=== PATIENT | female | born 1975 | race Caucasian/White ===

== ENCOUNTER 2023-05-12 00:11 | Emergency (ER) | payer OTHER, SELFPAY ==
[2023-05-12 00:12] VITALS: BP 175/93; PULSE 101; RESP 16; TEMP 36.1; O2SAT 98; BMI 42.7
--- NOTE | 2023-05-12 00:29 | RAD_ITS ---
INDICATION: chest pain EXAMINATION/TECHNIQUE: X-RAY - XR Chest 1 View COMPARISON: None. Findings: Single frontal view of the chest. LUNG PARENCHYMA/PLEURA: Moderate to large left pleural effusion with adjacent atelectasis versus other airspace disease. No pneumothorax. HEART/GREAT VESSELS: Cardiomediastinal silhouette is partially obscured. BONES: Osseous structures are unremarkable for age. RAD/Chest 1 View (Portable) IMPRESSION: Moderate to large left pleural effusion with adjacent atelectasis versus other airspace disease, to include pneumonia. Recommend follow-up to resolution as neoplastic process is not excluded. Electronically Signed: Jeremías Segura MD at 1:37 EDT ,
--- NOTE | 2023-05-12 00:29 | EKG12_ITS ---
Test Reason : CP Blood Pressure : / mmHG Vent. Rate : 094 BPM Atrial Rate : 094 BPM P-R Int : 172 ms QRS Dur : 096 ms QT Int : 372 ms P-R-T Axes : 046 029 047 degrees QTc Int : 465 ms Normal sinus rhythm Normal ECG Confirmed by JOSE R CHANDLER, VAN ([id number]), city editor FRANCISCO VELIZ ([id number]) on 05/17/2023 11:18:14 AM Referred By: PL Confirmed By:LAUREN ODELL MD
--- NOTE | 2023-05-12 00:31 | ED.VIS.CHEST ---
HPI History of Present Illness Chief Complaint: Chest Pain Informant: patient Narrative Narrative: Left-sided chest pain. Patient states she woke up at about 5 AM this morning and she had pain in the left axillary area. It is moved slightly around to the left lateral breast area. It is sharp. It is worse if she sits up or lays back. It is worse if she uses her left arm to pull on something. But it is also worse if she takes a deep breath. She is not actually short of breath. She has had no nausea vomiting or diaphoresis. 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 She states it is not heavy but her states she does a lot of heavy lifting. It is painful to do these motions. But she does not remember specifically hurting herself. She states she had something like this in her 20s and was diagnosed as pleurisy. But there is no known cause for that pleurisy. She denies ever being diagnosed with a DVT or PE. There is been no travel surgery immobilization family history of DVT or PE. Patient is a smoker and was counseled to quit. She has had a sister that of COPD. She had another family member of COPD and lung cancer. Patient also thinks her father may have had his first heart attack in his late 40s. Patient is hypertensive. She was diagnosed 3 months ago. This was at a routine physical. She was started on an unknown medicine that caused her to have abnormal menstrual cycle so she stopped the medicine. She has not yet followed up. [facility] Medical History HTN (hypertension) Home Medications ferrous sulfate 325 mg (65 mg iron) tablet (Feosol) 325 mg PO BID #60 tabs 05/12/23 [Rx Last Taken Unknown] levofloxacin 750 mg tablet 750 mg PO DAILY #5 tabs 05/12/23 [Rx Last Taken Unknown] naproxen 500 mg tablet 500 mg PO BID #14 tabs 05/12/23 [Rx Last Taken Unknown] Allergy/AdvReac Type Severity Reaction Status Date / Time No Known Allergies Allergy Verified 05/12/23 00:12 Surgical History History of tonsillectomy Social History Smoking Status: Current every day smoker tobacco type: cigarettes ROS ROS ED ROS Narrative A complete review of systems was performed and is negative except as documented in the history of present illness. Some specific details below. Constitutional: No recent fevers or chills. Malaise. When she went to bed she felt fine. Other than the pain she feels fine now. She does not feel systemically ill. EYE: No discharge, visual complaints, or pain. ENT: No difficulty swallowing. No swelling. No pain. No reflux symptoms. CV: See history of present illness. Not been syncopal or near syncopal. Respiratory: Does hurt to breathe but she is not short of breath. GI: No abdominal pain. No nausea vomiting diarrhea. No blood in stool. : No frequency dysuria or hematuria. Did have a menstrual cycle for over a month after she started her unknown blood pressure medicine. But she has now been off this for several weeks and is no longer bleeding. Musculoskeletal: No recent trauma. No pains. No swelling. Never had pain in the back. Her pain is not tearing or ripping. Skin: No rash. Nondiaphoretic now or at any time. Neuro: No weakness or numbness. Endocrine: No polyuria or polydipsia. EXAM Physical Exam Narrative Exam Narrative: CONSTITUTIONAL: Patient is nontoxic in appearance. The patient looks comfortable. She does sit somewhat hunched over because she states that straightening up hurts more. HEENT: No notable trauma. Mucous membranes moist. No sinus tenderness. No indication of pain with swallowing. EYES: No conjunctival injection. No proptosis. NECK:No JVD. No stridor. CARDIOVASCULAR: Regular rate. Rate on the monitor is 90?92 with no ectopy. It appears to be a normal sinus rhythm. Regular rhythm to auscultation also. No notable murmur. No JVD. RESPIRATORY: No respiratory distress. Breathing is unlabored. No wheezes. No rhonchi. No rales. She does have a little bit of discomfort with a deep breath in this area. But she also has chest wall tenderness in this area. But there are no vesicles noted. GASTROINTESTINAL: Not distended. Bowel sounds are normal. No tenderness. No guarding. No rebound. No palpable mass. No bruit is heard. GENITOURINARY: No tenderness over the bladder. No CVA tenderness. MUSCULOSKELETAL: Atraumatic. No peripheral edema. No cord. No tenderness along the deep venous system. No asymmetry. No distended veins. NEUROLOGICAL: Patient is alert and appropriate. No focal deficit noted. SKIN: No noted rashes. No diaphoresis. PSYCHIATRIC: Patient is calm. Mood is appropriate. Const Vital Signs: 05/12/23 00:12 05/12/23 00:33 Temperature 97 F L Temperature Source Temporal Pulse Rate 101 H Respiratory Rate 16 Blood Pressure 175/93 H Blood Pressure Mean 120 Pulse Ox 98 Oxygen Delivery Method Room Air Heart Score History: Slightly/Non-Suspicious ECG: Normal Age: >45 - <65 years Risk Factors: 1 or 2 Risk Factors Score: 2 MDM MDM MDM Narrative Medical decision making narrative: My independent interpretation of the patient's single view AP chest x-ray shows a moderate size left effusion. I could not hear this on exam but the patient did have some pleuritic pain and would have cessation of inspiration with a deep breath. CBC shows mild elevation of white count and a low hemoglobin 8.3. Platelets are also slightly elevated. Patient may be anemic because she had bleeding for a month or so continually when she started a unknown blood pressure medicine. She is now off that and no longer bleeding. But with her x-ray finding it also brings in the question possibility of bleeding there. Her story does not match that of dissection. She is never had back pain. Its all far lateral left sided. She does have tenderness in the chest wall. She also has pleuritic pain. I will do a CTA. 1 also must be concerned about cancer. It sounds like her father had lung cancer. She is lost 2 sisters from lung disease that sound like COPD and possible cancer. I am concerned with her x-ray finding. Because she had the heavy bleeding recently we will continue the scan through the abdomen pelvis. Although it certainly possible that a blood pressure medicine contributed to this bleeding this may not be the the reason that she had heavy bleeding for a while. Patient's electrolytes showed no marked abnormalities. Minimal elevation of glucose at 130 that can be rechecked. Patient's D-dimer is positive at 1.45. CTA was ordered. Troponin is negative at 43. She has had symptoms for approximately 20 hours. My independent her potation of her CTA of the chest does not show any dissection or pulmonary embolus. There is a large effusion on the left and questionable infiltrate. She appears to have a slightly enlarged uterus final reading is similar. They do mention a hemorrhagic ovarian cyst also. We walked the patient in the department. She walked actually a fair distance down and back. She looked comfortable. She was not short of breath. Her lowest saturation was 94%. I think we can get her home. I will get her started on antibiotics. But I explained that a very important part of treatment is follow-up. We need to make sure that her CT scan and/or chest x-ray clears. She also needs to follow-up for the anemia. This is likely from the heavy vaginal bleeding as her MCH and indices are down showing chronic changes. I will get her started on iron also. She is not currently bleeding. Lab Data Attestation: I reviewed the patient's lab results. Labs: Laboratory Results - last 24 hr 05/12/23 00:33 WBC 14.8 H RBC 4.34 Hgb 8.3 L Hct 29.3 L MCV 67.5 L MCH 19.1 L MCHC 28.3 L RDW Std Deviation 46.1 H RDW Coeff of Moe 19.4 H Plt Count 494 H MPV 8.6 Immature Gran % (Auto) 0.700 Neut % (Auto) 82.2 H Lymph % (Auto) 6.3 L [place] % (Auto) 10.0 Eos % (Auto) 0.5 Baso % (Auto) 0.3 Absolute Neuts (auto) 12.2 H Absolute Lymphs (auto) 0.93 Nucleated RBC % 0 D-Dimer Quant (PE/DVT) 1.45 H* Sodium 135 L Potassium 3.6 Chloride 105 Carbon Dioxide 23.0 Anion Gap 7 BUN 10 Creatinine 0.66 Estim Creat Clear Calc 78.66 Est GFR (MDRD) Af Amer 122 Est GFR (MDRD) Non-Af 101 BUN/Creatinine Ratio 15.1 Glucose 130 H Calcium 9.1 Troponin I High Sens 43 Radiography Diagnostic Testing: Clinical Impression(s) from Imaging Studies Chest X-Ray 05/12/23 00:29 IMPRESSION: Moderate to large left pleural effusion with adjacent atelectasis versus other airspace disease, to include pneumonia. Recommend follow-up to resolution as neoplastic process is not excluded. Electronically Signed: Jeremías Segura MD at 1:37 EDT , Chest/Abdomen/Pelvis CTA 05/12/23 00:44 IMPRESSION: Moderate left pleural effusion with adjacent atelectasis. Likely associated borderline mediastinal adenopathy. Recommend follow-up to resolution as neoplastic process is not excluded. 3 cm right likely hemorrhagic ovarian cyst. Likely splenic hemangioma as above. Recommend comparison with previous imaging to document long-term stability versus follow-up evaluation as neoplastic process is not excluded. Electronically Signed: Jeremías Segura MD at 1:59 EDT , EKG Initial EKG: Comments: Independent interpretation the patient's EKG shows sinus rhythm with a rate at 94. No ectopy. No acute ST elevation or depression. MT interval, QRS duration and QTc are overall normal. I do not have a prior to compare to on our system. Discharge Plan Triage Chief Complaint: Chest Pain ED Provider: Melvin Márquez Dx/Rx/DC Orders Clinical Impression: Pneumonia, Anemia, Pleural effusion, left Instructions: Anemia, ED Pneumonia (Adult) Prescriptions: New ferrous sulfate [Feosol] 325 mg (65 mg iron) tablet 325 mg PO BID Qty: 60 0RF Rx Instructions: Heart once a day for a week then go up to twice a day levofloxacin 750 mg tablet 750 mg PO DAILY Qty: 5 0RF naproxen 500 mg tablet 500 mg PO BID Qty: 14 0RF Primary Care Provider: Care Physician,No Primary Referrals: Abdulkadir De La Fuente MD [Non-Staff] - Lawanda Marcano [Non-Staff] - 1 Week Disposition Disposition: Home, Self Care
[2023-05-12] MEDS: 0.9% Normal Saline (1000mL) 1,000 ML 1000 ML IV (00:35)
[2023-05-12 00:37] LABS: Absolute Lymphocyte Count 0.93 X10^3/uL (0.83-4.51); Absolute Neutrophil Count 12.2 X10^3/uL (2.0-7.7); Basophil# 0.05 X10^3/uL; Basophil% 0.3 % (0-1); Eosinophil# 0.08 X10^3/uL; Eosinophils% 0.5 % (0-5); Hematocrit 29.3 % (37-47); Hemoglobin 8.3 g/dL (12.0-15.0); Lymphocyte # 0.93 X10^3/ul (0.83-4.51); Lymphocyte % 6.3 % (19-41); Mean Corp Hgb Conc 28.3 g/dL (32-36); Mean Corpuscular Hgb 19.1 pg (27.0-32.0); Mean Corpuscular Volume 67.5 fL (81-99); Mean Platelet Vol. 8.6 fl (6.2-12.0); Monocyte# 1.49 X10^3/uL; NRBC Flagged by Analyzer 0 % (0-5); Neutrophil # 12.18 X10^3/uL (2.7-7.7); Neutrophil % 82.2 % (47-70); Platelet Count 494 K/mm3 (150-450); RBC Distribution Width CV 19.4 % (11.6-14.6); RBC Distribution Width SD 46.1 fl (35.1-43.9); Red Blood Count 4.34 M/mm3 (4.2-5.4); White Blood Count 14.8 K/mm3 (4.4-11.0)
--- NOTE | 2023-05-12 00:44 | CT_ITS ---
INDICATION: left chest pain, ?PE, menstrual bleeding COMPARISON: Chest radiograph same day. A radiation dose optimization technique was used for this scan. Radiation CTDIvol 14.61 Radiation DLP 1344.32 FINDINGS: Contrast enhanced serial CTA axial images through the chest, abdomen, and pelvis with coronal and sagittal reformatted series. IV Contrast dosage and agent: 100 cc Isovue-370 IV. MEDIASTINUM: No pulmonary artery filling defects. Borderline enlarged mediastinal lymph node in AP window measuring 10 mm in short axis. AORTA/GREAT VESSELS: No acute thoracoabdominal aortic abnormality. Major abdominal ostia are patent. LUNG PARENCHYMA/PLEURA: Moderate to large left pleural effusion with adjacent atelectasis versus other airspace disease. No pneumothorax. APPENDIX: Normal caliber gas containing appendix. UTERUS/ADNEXA: Bilateral adnexal surgical clips. Non-simple fluid hypoattenuating right adnexal lesion, likely hemorrhagic ovarian cyst measuring up to 3.2 cm. SPLEEN: Ill-defined hypoattenuating 3 cm Central splenic lesion which does not measure simple fluid, likely splenic hemangioma. PANCREAS: No peripancreatic fat stranding. BOWEL/MESENTERY: No dilated bowel loops. No significant free fluid. No free air. GALLBLADDER: No pericholecystic fat stranding. LIVER/STOMACH: No obvious abnormality. URINARY COLLECTING SYSTEM/ KIDNEYS: No evidence of urinary collecting system obstruction. No significant renal parenchymal abnormality. BONES: Unremarkable for age. CT/CTA Chst, Abd, Pel W and/or WO IMPRESSION: Moderate left pleural effusion with adjacent atelectasis. Likely associated borderline mediastinal adenopathy. Recommend follow-up to resolution as neoplastic process is not excluded. 3 cm right likely hemorrhagic ovarian cyst. Likely splenic hemangioma as above. Recommend comparison with previous imaging to document long-term stability versus follow-up evaluation as neoplastic process is not excluded. Electronically Signed: Jeremías Segura MD at 1:59 EDT ,
[2023-05-12 00:55] LABS: Anion Gap 7 (5-15); BUN 10 mg/dL (7-18); BUN/Creat Ratio 15.1 RATIO (10-20); Calcium,Total 9.1 mg/dL (8.5-10.1); Chloride 105 mmol/L (98-107); Creatinine, Serum 0.66 mg/dL (0.55-1.02); EST Glomerular Filtration Rate 101 mL/min (>60); Est Glom Filt Rate - Afr Amer 122 mL/min (>60); Estimated Creatinine Clearance 78.66 ml/min; Glucose 130 mg/dL (74-106); Potassium 3.6 mmol/L (3.5-5.1); Sodium Level 135 mmol/L (136-145); Troponin-I HS 43 pg/mL (3.0-54.0)
[2023-05-12 00:57] LABS: D-Dimer Quantitative (DVT/PE) 1.45 FEU/ug/m (0.27-0.49)
[2023-05-12 02:12] VITALS: O2SAT 96
[2023-05-12 02:54] VITALS: BP 171/82; PULSE 88; RESP 16; O2SAT 97
[2023-05-12] MEDS: levoFLOXacin 750 MG Tablet PO (02:57)
[2023-05-12] MEDS: oxyCODONE 5 MG Tablet PO (03:11)
== END 2023-05-12 03:12 | disposition home or self-care (01) ==
PROVIDERS: Emergency Provider Emergency Medicine; Visit Provider Emergency Medicine
DX: J18.9 Pneumonia, unspecified organism (principal); J44.0 Chronic obstructive pulmonary disease with (acute) lower respiratory infection; J90 Pleural effusion, not elsewhere classified; D64.9 Anemia, unspecified; I10 Essential (primary) hypertension; F17.210 Nicotine dependence, cigarettes, uncomplicated; N93.9 Abnormal uterine and vaginal bleeding, unspecified; N83.209 Unspecified ovarian cyst, unspecified side
CPT/HCPCS: 71045; 71275; 74174; 80048; 84484; 85025; 85379; 93005; 96360; 96361; 99284; J7030; Q9967; A4216

== ENCOUNTER 2023-05-27 07:50 | Observation (INO) | payer BC, SELFPAY ==
[2023-05-27] VITALS (16 sets, daily range): BP systolic 112–169; BP diastolic 61–98; PULSE 86–108; RESP 16–20; TEMP 36.4–37.2; O2SAT 91–98; BMI 40.7; BMI 41.1
--- NOTE | 2023-05-27 | EGD_PTH ---
PATIENT: MIKE LONGORIA LOC: [facility]3 U#:[id number] AGE/SX: 47/F ROOM: [facility] [place] RE05/27/[address]: Dr. Wilver Pak, : 1975 BED: 1 DIS: 05/28/2023 SPEC #: [id number] RECD: 05/29/23 18:48 STATUS: YUNIOR REQ #: [id number] MICHEL: 05/27/23 00:[address]: Jose Luis Del Rosario DEPT: SURGICAL PATHOLOGY RECD BY: Emeka Reed ENTERED: 05/30/23 09:33 SP TYPE: EGD BIOPSY OTHR DR: Dr. Wilver Pak, DO No Primary Care Phys Tissues: Duodenum, NOS Procedures: Surgery Specimen Level IV Comments: @ Ordering doctor for SUIV edited from to @ by RGOTORIN at 05/30/23 141 @ Submitting doctor edited from to @ by DALILAOD at 05/30/23 1412 HEADER OPERATION: EGD with biopsies PRE-OP DIAGNOSIS: Symptomatic anemia, pneumonia TISSUE SUBMITTED: Duodenal ulcer MICROSCOPIC DIAGNOSIS Duodenal ulcer, biopsy: Focal gastric metaplasia with associated mild chronic inflammation and focal acute inflammation. AM:yoli 05/31/2023 MICROSCOPIC DESCRIPTION Slides are reviewed. GROSS DESCRIPTION Received in fixative is one container labeled with the patient's name and designated duodenal ulcer. The specimen consists of two irregular fragments of light dinero soft tissue that in aggregate measure 0.6 x 0.6 x .1 cm. The specimen is totally submitted in one cassette. / AM:yoli 05/30/2023 TC:2 CPT: 93120
--- NOTE | 2023-05-27 08:04 | EX.ED.DYSGE1 ---
HPI History of Present Illness Chief Complaint: Shortness of Breath Narrative Narrative: 47-year-old female past medical history of hypertension presents with hives and itchiness all over her body. She relates history that she was seen in the emergency department around 2 weeks ago and took 5 days of Levaquin. Her symptoms had improved since then and she was getting over pneumonia. However, she states 3 days ago everyone her family got sick. She developed a rash all over her body, on the tops of her feet, on her hands became swollen. It is very pruritic in nature. She states she feels a little short of breath but denies any throat closing. She has no pain on inspiration. Her main concern is that she had this rash that feel like hives that will swell up, then go away and her entire body is itchy. She has taken Benadryl, but it makes her loopy and sleepy, and not allowing her to go to work. [facility] Medical History HTN (hypertension) Home Medications ferrous sulfate 325 mg (65 mg iron) tablet (Feosol) 325 mg PO BID #60 tabs 05/12/23 [Rx Last Taken Unknown] levofloxacin 750 mg tablet 750 mg PO DAILY #5 tabs 05/12/23 [Rx Last Taken Unknown] naproxen 500 mg tablet 500 mg PO BID #14 tabs 05/12/23 [Rx Last Taken Unknown] albuterol sulfate 90 mcg/actuation aerosol inhaler (Ventolin HFA) 1 - 2 puff inhalation Q4H PRN PRN Wheezing #1 ea 05/27/23 [Rx Last Taken Unknown] doxycycline hyclate 100 mg tablet 100 mg PO BID #14 tabs 05/27/23 [Rx Last Taken Unknown] Allergy/AdvReac Type Severity Reaction Status Date / Time No Known Allergies Allergy Verified 05/27/23 07:50 Surgical History History of tonsillectomy Social History Smoking Status: Current every day smoker tobacco type: cigarettes ROS ROS ED ROS Narrative Constitutional: No fever, no chills. HEENT: No sore throat. No neck pain. No loss of vision. No rhinorrhea. Throat closing. Cardiovascular: No chest pain. No palpitations. No pedal edema. Respiratory: No cough, no shortness of breath. Pleuritic chest pain. Abdominal: No abdominal pain. No nausea. No vomiting. Genitourinary: No dysuria. No hematuria. Musculoskeletal: No myalgias. No arthralgias. Neurologic: No headaches. No dizziness. No lightheadedness. Skin: Hives all over her body, mainly on hands and feet, that come and go. Neurolyse pruritus. No change in color. Psychiatric: No depression. No anxiety. EXAM Physical Exam Narrative Exam Narrative: Afebrile. Vital signs noted. HEENT: Normocephalic. Atraumatic. PERRL, EOMI. Neck soft and supple. No point tenderness or step off. No stridor. Airway patent. Cardiovascular: Regular rate and rhythm. No murmurs, rubs, or gallops appreciated. Respiratory: No tachypnea. Lungs clear to auscultation bilaterally. Gastrointestinal: Abdomen soft, nontender, with normoactive bowel sounds. No rebound or guarding. Neurological: Awake. Alert. Nonfocal, nonlateralizing. Skin: Small amount of hives on bilateral dorsum of feet. Normal color. No pallor. Musculoskeletal: No pedal edema. Full range of motion extremities. Const Vital Signs: 05/27/23 07:50 05/27/23 08:19 05/27/23 10:15 Temperature 97.6 F L 98.3 F Temperature Source Temporal Oral Pulse Rate 106 H 102 H Respiratory Rate 16 16 Respiratory Effort Short of Breath Blood Pressure 169/98 H 148/94 H Blood Pressure Mean 121 112 Pulse Ox 96 97 Oxygen Delivery Method Room Air Room Air Room Air MDM MDM MDM Narrative Medical decision making narrative: I reviewed the patient's prior records. She had a CTA which showed a pleural effusion and possible infiltrate. She states that her breathing has improved significantly. I do feel chest x-ray is warranted to make sure that there is clearing of her pneumonia from 2 weeks ago, or at least improvement. Regarding her itchy rash which are probably hives, I do not feel that epinephrine is indicated. They do not look like petechiae so I have low suspicion for liver failure. However, in review of her labs she had heavy vaginal bleeding and was slightly anemic at 8.4. I do feel CBC and CMP should be obtained. Regarding her itchiness, she does not want Benadryl currently because of the way it makes her feel. I will give her an intramuscular shot of Kenalog as a steroid to help with her symptoms. EKG was obtained and interpreted by myself independently as normal sinus rhythm at 100 bpm without ectopy or acute ST changes. No STEMI. I reviewed her laboratory work from today and she still has a leukocytosis of 13.3, hemoglobin 7.2. I do not feel she requires emergent blood transfusion. She states she started taking iron pills. She was told to have her anemia rechecked by her primary care provider soon. She should do it early next week. Platelet count is elevated at 685 which may be an acute phase reactant. Review of her electrolyte panel sodium slightly low at 134 with chloride normal at 104, BUN of 15, creatinine 0.68. Glucose is appropriately elevated at 116 with an anion gap of 6. While her alk phos is elevated at 232, she has normal LFTs with an AST of 28 and an ALT of 40. Chest x-ray in 1 view shows improving pneumonia on the left but a new infiltrate on the right on my independent interpretation. I reviewed the radiology report which confirms my independent interpretation of new infiltrate on the right. She was given a dose of doxycycline here in the emergency department and a prescription written for the next week along with albuterol inhaler. However, walking ambulatory pulse ox was obtained and while it is 91% on room air, she is tachycardic and became very short of breath. She complains of continued tiredness. She states she has not taken her iron pill in the past few days. Chaperoned rectal examination was performed and fecal occult blood test is positive. Given her GI bleeding and symptomatic anemia, I will discuss the patient with the hospitalist for admission. Patient is in stable condition. History & Record Review Discussion w/independent historian: Patient Additional record(s) reviewed:: Prior outpatient record, Prior ED visit and Prior labs Lab Data Attestation: I reviewed the patient's lab results. Labs: Laboratory Results - last 24 hr 05/27/23 08:24 WBC 13.3 H RBC 3.71 L Hgb 7.2 L Hct 25.2 L MCV 67.9 L MCH 19.4 L MCHC 28.6 L RDW Std Deviation 47.9 H RDW Coeff of Moe 20.1 H Plt Count 685 H MPV 8.9 Immature Gran % (Auto) 0.900 Neut % (Auto) 83.0 H Lymph % (Auto) 7.4 L [place] % (Auto) 8.5 Eos % (Auto) 0.0 Baso % (Auto) 0.2 Absolute Neuts (auto) 11.0 H Absolute Lymphs (auto) 0.99 Nucleated RBC % 0 Hypochromasia 2+ Anisocytosis 1+ Microcytosis 2+ Sodium 134 L Potassium 4.1 Chloride 104 Carbon Dioxide 24.0 Anion Gap 6 BUN 15 Creatinine 0.68 Estim Creat Clear Calc 76.35 Est GFR (MDRD) Af Amer 119 Est GFR (MDRD) Non-Af 98 BUN/Creatinine Ratio 22.1 H Glucose 116 H Calcium 9.0 Total Bilirubin 0.40 AST 28 ALT 40 Alkaline Phosphatase 232 H Total Protein 7.2 Albumin 2.5 L Globulin 4.7 H Albumin/Globulin Ratio 0.5 L Radiography Diagnostic Testing: Clinical Impression(s) from Imaging Studies Chest X-Ray 05/27/23 08:35 IMPRESSION: Residual pleural parenchymal changes at the left lung base although this has improved. New infiltrate in the medial aspect of the right lung base. Further aggressive follow-up is recommended. Electronically Signed: Guanako Malone MD at 8:53 EDT , Discharge Plan Triage Chief Complaint: Shortness of Breath ED Provider: Tanner Lombardo Dx/Rx/DC Orders Clinical Impression: Hives, Pneumonia Instructions: ED Hives (Adult), ED Pneumonia (Adult) Prescriptions: New doxycycline hyclate 100 mg tablet 100 mg PO BID Qty: 14 0RF albuterol sulfate [Ventolin HFA] 90 mcg/actuation HFA aerosol inhaler 1 - 2 puff inhalation Q4H PRN PRN (Reason: Wheezing) Qty: 1 0RF No Action ferrous sulfate [Feosol] 325 mg (65 mg iron) tablet 325 mg PO BID Qty: 60 0RF Rx Instructions: Heart once a day for a week then go up to twice a day levofloxacin 750 mg tablet 750 mg PO DAILY Qty: 5 0RF naproxen 500 mg tablet 500 mg PO BID Qty: 14 0RF Primary Care Provider: Care Physician,No Primary Referrals: Care Physician,No Primary [Primary Care Provider] - Activity Restrictions/Additional Instructions: Follow-up with your primary care provider in the next week. Return with increased shortness of breath, new or worsening symptoms. Disposition Disposition: Home, Self Care
[2023-05-27] MEDS: Triamcinolone Acetonide 40 MG/ML Vial IM (08:25)
[2023-05-27 08:35] LABS: Absolute Lymphocyte Count 0.99 X10^3/uL (0.83-4.51); Basophil# 0.02 X10^3/uL; Basophil% 0.2 % (0-1); Hematocrit 25.2 % (37-47); Hemoglobin 7.2 g/dL (12.0-15.0); Lymphocyte # 0.99 X10^3/ul (0.83-4.51); Lymphocyte % 7.4 % (19-41); Mean Corp Hgb Conc 28.6 g/dL (32-36); Mean Corpuscular Hgb 19.4 pg (27.0-32.0); Mean Corpuscular Volume 67.9 fL (81-99); Mean Platelet Vol. 8.9 fl (6.2-12.0); Monocyte# 1.13 X10^3/uL; Monocyte% 8.5 % (0-10); NRBC Flagged by Analyzer 0 % (0-5); Neutrophil # 11.04 X10^3/uL (2.7-7.7); POSITIVE MORPHOLOGY YES; Platelet Count 685 K/mm3 (150-450); RBC Distribution Width CV 20.1 % (11.6-14.6); RBC Distribution Width SD 47.9 fl (35.1-43.9); Red Blood Count 3.71 M/mm3 (4.2-5.4); White Blood Count 13.3 K/mm3 (4.4-11.0)
--- NOTE | 2023-05-27 08:35 | RAD_ITS ---
STUDY: X-RAY CHEST REASON FOR EXAM: Female, 47 years old. Shortness of breath TECHNIQUE: Single AP portable view of the chest. COMPARISON: Comparison is made with prior study May 12, 2023. FINDINGS: Residual blunting of the left cartilage finding angle with the increased markings in the left lung base although there has been moderate improvement. Focal infiltrate is now seen in the medial aspect of the right lung base. Further follow-up recommended. There is moderate cardiac enlargement. Normal mediastinum and soham. Normal visualized pulmonary arteries. Normal visualized aortic arch and descending thoracic aorta. Normal visualized thoracic spine. Normal visualized ribs, clavicles, and shoulders. There is no demonstrated abnormality of the visualized soft tissue structures of the upper abdomen. RAD/Chest 1 View (Portable) IMPRESSION: Residual pleural parenchymal changes at the left lung base although this has improved. New infiltrate in the medial aspect of the right lung base. Further aggressive follow-up is recommended. Electronically Signed: Guanako Malone MD at 8:53 EDT ,
[2023-05-27 08:40] LABS: Differential Indicated SCAN CRITERIA MET
[2023-05-27 08:53] LABS: ALB/GLOB Ratio 0.5 RATIO (0.9-2.4); AST(SGOT) 28 U/L (15-37); Alanine Aminotransfer ALT/SGPT 40 U/L (13-56); Albumin, Serum 2.5 g/dL (3.2-5.0); Alkaline Phosphatase 232 U/L (45-117); Anion Gap 6 (5-15); BUN 15 mg/dL (7-18); BUN/Creat Ratio 22.1 RATIO (10-20); Chloride 104 mmol/L (98-107); Creatinine, Serum 0.68 mg/dL (0.55-1.02); EST Glomerular Filtration Rate 98 mL/min (>60); Est Glom Filt Rate - Afr Amer 119 mL/min (>60); Estimated Creatinine Clearance 76.35 ml/min; Globulin 4.7 g/dL (2.2-4.2); Glucose 116 mg/dL (74-106); Potassium 4.1 mmol/L (3.5-5.1); Protein, Total 7.2 g/dL (6.4-8.2); Sodium Level 134 mmol/L (136-145)
--- NOTE | 2023-05-27 09:17 | EKG12_ITS ---
Test Reason : SOB Blood Pressure : / mmHG Vent. Rate : 100 BPM Atrial Rate : 100 BPM P-R Int : 158 ms QRS Dur : 092 ms QT Int : 344 ms P-R-T Axes : 057 047 047 degrees QTc Int : 443 ms Normal sinus rhythm Low voltage QRS Nonspecific T wave abnormality Abnormal ECG Confirmed by MARSHA CHANDLER, ADALID ([id number]), newspaper editor DANIELA ADAMES ([id number]) on 05/31/2023 11:48:56 AM Referred By: HILDA Confirmed By:ADALID LARSON MD
[2023-05-27 09:21] LABS: Hypochromasia 2+; Microcytosis 2+
[2023-05-27 09:22] LABS: Anisocytosis 1+
[2023-05-27] MEDS: Doxycycline 100 MG CAPSULE PO (10:08)
--- NOTE | 2023-05-27 12:03 | PCM.HP.STD ---
HPI - General General Date of Admission: 05/27/23 Date of Service: 05/27/23 Chief Complaint: Malaise, shortness of breath HPI Narrative MIKE LONGORIA, is a 47 F who presents to the emergency room at [facility] with concerns that she might be developing pneumonia. Patient was seen in the last week in April [address] [facility] ER and diagnosed with a pneumonia and placed on Levaquin, she states she finished the course of Levaquin approximately 4 to 5 days ago. Today she is not felt well, she has a cough that is nonproductive, she denies any fevers or chills, she has complaints of an itchy rash that has popped up from time to time over the last 2 days over her arms and feet. Lab work obtained in the emergency room included a CBC which showed an elevated white blood cell count at 13.3, hemoglobin was 7.2, CHEM panel was remarkable for an alkaline phosphatase of 232. Patient's pulse ox on room air was 96%, and the patient's chest x-ray showed a residual pleural-parenchymal change at the left lung base which had improved compared with the previous chest x-ray done on 05/12/2023, there was a new infiltrate also noted in the medial aspect of the right lung base. Patient was admitted for worsening anemia and recurrent pneumonia, she will be seen by gastroenterology and undergo endoscopy, she will be placed on IV antibiotics. The etiology of the patient's urticaria is unknown at this time. Patient states she was diagnosed with an anemia 6 months ago and placed on oral iron. [facility] Medical History HTN (hypertension) Home Medications ferrous sulfate 325 mg (65 mg iron) tablet (Feosol) 325 mg PO BID #60 tabs 05/12/23 [Rx Last Taken Unknown] naproxen 500 mg tablet 500 mg PO BID #14 tabs 05/12/23 [Rx Last Taken Unknown] albuterol sulfate 90 mcg/actuation aerosol inhaler (Ventolin HFA) 1 - 2 puff inhalation Q4H PRN PRN Wheezing #1 ea 05/27/23 [Rx Last Taken Unknown] doxycycline hyclate 100 mg tablet 100 mg PO BID #14 tabs 05/27/23 [Rx Last Taken Unknown] Allergy/AdvReac Type Severity Reaction Status Date / Time No Known Allergies Allergy Verified 05/27/23 14:11 Surgical History History of tonsillectomy Social History Smoking Status: Current every day smoker tobacco type: cigarettes ROS Constitutional Constitutional: Reports fatigue, malaise and weakness; Denies anorexia, change in weight, chills, fever(s) or night sweats Eyes Eyes: Denies blurry vision, change in vision, discharge from eye(s) or eye pain Cardiovascular Cardiovascular: Denies chest pain, claudication, edema or palpitations Respiratory/Chest Respiratory/Chest: Reports cough and shortness of breath with exertion; Denies hemoptysis, productive cough or shortness of breath at rest Gastrointestinal Gastrointestinal: Denies abdominal pain, coffee ground emesis, constipation, diarrhea, dyspepsia, hematemesis, hematochezia, melena, nausea or vomiting Genitourinary Genitourinary: Denies dysuria, hematuria, urinary frequency, urinary hesitancy, urinary incontinence or urinary urgency Musculoskeletal Musculoskeletal: Denies back pain, joint pain, joint stiffness, joint swelling, myalgias or neck pain Neurologic Neurologic: Denies abnormal gait, abnormal speech, dizziness, focal weakness, headache(s), loss of vision, numbness, other visual disturbances, paresthesias, syncope or tingling Psychiatric Psychiatric: Denies anxiety, cognitive impairment, depression, irritability, mood swings or suicidal ideation Endocrine Endocrinology: Denies change in body appearance, cold intolerance, excessive sweating, heat intolerance, polydipsia or polyuria Hematologic/Lymphatic Hematologic/Lymphatic: Denies none, anemia, easy bleeding, easy bruising or lymphadenopathy Allergic/Immunologic Allergic/Immunologic: Denies rhinitis, urticaria, eczemia or asthma Vital Signs Vital Signs Vital Signs: 05/27/23 07:50 05/27/23 08:19 05/27/23 10:15 Temperature 97.6 F L 98.3 F Temperature Source Temporal Oral Pulse Rate 106 H 102 H Respiratory Rate 16 16 Respiratory Effort Short of Breath Blood Pressure 169/98 H 148/94 H Blood Pressure Mean 121 112 Pulse Ox 96 97 Oxygen Delivery Method Room Air Room Air Room Air 05/27/23 11:21 Temperature 98.3 F Temperature Source Pulse Rate 102 H Respiratory Rate 16 Respiratory Effort Blood Pressure 148/94 H Blood Pressure Mean 112 Pulse Ox 97 Oxygen Delivery Method Weight Weight: 97.795 kg Body Mass Index (BMI) 40.7 Physical Exam Const alert, oriented x3 and no apparent distress Constitutional Narrative: Patient is morbidly obese General Appearance: cooperative, well kempt and well developed Orientation / Consciousness: awake, oriented to person, oriented to place and oriented to time HEENT normocephalic and moist oral mucous membranes Eyes PERRL, EOMs intact bilaterally and conjunctivae normal Neck supple, no JVD, thyroid normal and no carotid bruits General: trachea midline Resp normal respiratory effort, no retractions, no use of accessory muscles and clear to auscultation bilaterally Auscultation: Negative for rales, rhonchi or wheezes Cardio regular rate, regular rhythm, S1 normal heart sound, S2 normal heart sound, no murmurs, no rub and no gallops GI normal to inspection, nondistended, normoactive bowel sounds, soft to palpation, non-tender and non-distended Extremity no clubbing, cyanosis or edema Skin Skin Narrative: Patient has scattered raised reddened areas over the left side of her face and her left forearms General Skin Exam: no breakdown Neuro oriented x3, CN's II-XII intact bilaterally, moves all extremities, no focal motor deficits and no sensory deficits noted Sensorium / Orientation: awake, alert, oriented to person, oriented to place and oriented to time Speech: speech normal Psych affect normal Results Lab / Micro Data 05/27/23 08:24 05/27/23 08:24 Labs: Laboratory Results - last 24 hr 05/27/23 08:24: WBC 13.3 H, RBC 3.71 L, Hgb 7.2 L, Hct 25.2 L, MCV 67.9 L, MCH 19.4 L, MCHC 28.6 L, RDW Std Deviation 47.9 H, RDW Coeff of Moe 20.1 H, Plt Count 685 H, MPV 8.9, Immature Gran % (Auto) 0.900, Neut % (Auto) 83.0 H, Lymph % (Auto) 7.4 L, [place] % (Auto) 8.5, Eos % (Auto) 0.0, Baso % (Auto) 0.2, Absolute Neuts (auto) 11.0 H, Absolute Lymphs (auto) 0.99, Nucleated RBC % 0, Hypochromasia 2+, Anisocytosis 1+, Microcytosis 2+, Sodium 134 L, Potassium 4.1, Chloride 104, Carbon Dioxide 24.0, Anion Gap 6, BUN 15, Creatinine 0.68, Estim Creat Clear Calc 76.35, Est GFR (MDRD) Af Amer 119, Est GFR (MDRD) Non-Af 98, BUN/Creatinine Ratio 22.1 H, Glucose 116 H, Calcium 9.0, Total Bilirubin 0.40, AST 28, ALT 40, Alkaline Phosphatase 232 H, Total Protein 7.2, Albumin 2.5 L, Globulin 4.7 H, Albumin/Globulin Ratio 0.5 L Micro: Microbiology 05/27/23 10:25 Stool Stool Occult Blood ([facility]) - Final Occult Blood Positive Radiology Impression Chest X-Ray 05/27/23 08:35 IMPRESSION: Residual pleural parenchymal changes at the left lung base although this has improved. New infiltrate in the medial aspect of the right lung base. Further aggressive follow-up is recommended. Electronically Signed: Guanako Malone MD at 8:53 EDT , Assessment & Plan Assessment/Plan (1) GI bleeding: PLAN: Plan 1. Acute on chronic anemia-patient will be admitted to [facility], she will be seen by gastroenterology and undergo endoscopy, I have ordered serum iron studies. Patient states she was diagnosed with anemia several months ago, I tracked down the provider that she saw, it was Aracelis louie certified nurse practitioner, at that time a CBC was ordered and she had a hemoglobin of 10.1 and her MCV was 72.5. There were no serum iron studies ordered, patient had Hemoccult studies ordered but she never picked up the material to complete the test. Patient will be kept on Protonix, I expect that she may need a lower endoscopy performed. #2 community-acquired pneumonia-patient's presentation suggest community-acquired pneumonia, her chest x-ray is abnormal and her white count is slightly elevated. Patient does not have a productive cough however and has no complaints of any fever or chills. For now I will place the patient on IV Zithromax and Rocephin. #3 essential hypertension-patient states that she was diagnosed with essential hypertension but her provider placed her on a medication which caused her to have a continuous menstrual period for a month-I called the patient's pharmacy and it appears that this medication was amlodipine. Patient states that she stopped the medication and that her primary care provider told her that she would just monitor her blood pressure. Patient's blood pressures have been high since she has been admitted, I may have to place her on a medication if so I will start her on losartan. #4 morbid obesity-complicates care, medical course, recovery, and prognosis. Total clinical time spent by myself addressing the patient's medical issues, reviewing all of her data, and collaborating with patient's care team: 55 minutes Charges/Coding Visit Charges Inpatient E&M: 86497 Init Hosp L2
[2023-05-27] MEDS: Pantoprazole Sodium 40 MG in 0.9% Normal Saline (100mL MB+) 100 ML 330 MG IV ×2 (14:54→22:15)
[2023-05-27] MEDS: 0.9% Normal Saline (1000mL) 1,000 ML 100 ML IV (14:55)
[2023-05-27 15:58] LABS: Platelet Count 726 K/mm3 (150-450); Reticulocyte Count 2.34 % (0.5-1.5)
[2023-05-27 15:59] LABS: Ferritin 51 ng/mL (8-252); Iron 11 ug/dL (50-170); Iron Binding Capacity,Total 344 ug/dL (250-450); PERCENT IRON SATURATION 3.2 % (15.0-55.0)
--- NOTE | 2023-05-27 18:00 | ECHOD_ITS ---
Version 2 Reason For Study: DYSPNEA Procedure This was a 2D Doppler, Color Flow transthoracic echocardiogram. Exam performed portable in patient room. Left Ventricle Normal LV size. Left ventricular systolic function is normal. The estimated ejection fraction is 65 %. No regional wall motion abnormalities noted. Right Ventricle Normal RV size. Normal systolic function. Atria The left atrium is moderately enlarged. Normal right atrium. Mitral Valve Normal mitral valve. Tricuspid Valve Normal tricuspid valve. Aortic Valve Normal aortic valve. Trisinus/trileaflet aortic valve. Pulmonic Valve Normal pulmonic valve. Great Vessels Normal aortic root. The pulmonary artery is normal size. Normal inferior vena cava. Pericardium/Pleural Circumferential effusion. Moderate to large pericardial effusion with no obvious tamponade noted measuring 2.5-3cm in some areas. MMode/2D Measurements & Calculations LVIDd: 4.7 cm IVSd: 1.3 cm Ao root diam: 2.7 cm LVIDs: 3.2 cm LVPWd: 1.1 cm FS: 31.7 % LAV(MOD-bp): 78.0 ml LVAd ap4: 32.1 cm2 SV(MOD-sp4): 63.6 ml LAV(MOD-bp) Indexed: 39.8 ml/m2 LVLd ap4: 9.0 cm LAV(MOD-sp2): 62.0 ml EDV(MOD-sp4): 95.6 ml LAV(MOD-sp4): 70.9 ml EDV(sp4-el): 97.4 ml LVAs ap4: 14.5 cm2 LVLs ap4: 6.4 cm ESV(MOD-sp4): 32.0 ml ESV(sp4-el): 28.1 ml EF(MOD-sp4): 66.5 % EF(sp4-el): 71.1 % SV(sp4-el): 69.3 ml LA A4 area: 25.3 cm2 LA dimension(2D): 3.7 cm RA A4 area: 13.6 cm2 TAPSE: 2.1 cm Time Measurements MV dec time: 0.13 sec Doppler Measurements & Calculations MV E max stanley: 101.7 cm/sec Lat Peak E' Stanley: 7.6 cm/sec Med Peak E' Stanley: 12.9 cm/sec MV A max stanley: 87.3 cm/sec E/E' lat: 13.3 E/E' med: 7.9 MV E/A: 1.2 MV V2 max: 113.8 cm/sec Ao V2 max: 181.8 cm/sec MV max P.2 mmHg MV dec slope: 1098 cm/sec2 Ao max P.2 mmHg MV V2 mean: 86.2 cm/sec Ao V2 mean: 122.3 cm/sec MV mean P.2 mmHg Ao mean P.9 mmHg MV V2 VTI: 31.6 cm Ao V2 VTI: 36.3 cm AV (velocity ratio): 0.93 LV V1 max: 153.6 cm/sec PA V2 max: 109.7 cm/sec LV V1 max P.4 mmHg PA V2 mean: 77.8 cm/sec LV V1 mean P.8 mmHg LV V1 mean: 113.9 cm/sec LV V1 VTI: 33.6 cm ECHO/Echo Complete Interpretation Summary Normal LV size. Left ventricular systolic function is normal. The estimated ejection fraction is 65 %. Circumferential effusion. Moderate to large pericardial effusion with no obvious tamponade noted measurin g 2.5-3cm in some areas Ordering Physician: Wilver Pak Referring Physician: NO PCP Performed By: Bel Barragan RCS
--- NOTE | 2023-05-27 18:05 | CON.PCM.GI_ITS ---
HPI Consult Data Date of Consult: 05/27/23 HPI Narrative Reason for Consultation: Anemia HPI Narrative: MIKE LONGORIA, is a 47 F who present with past medical history of hypertension presents with hives and itchiness all over her body. She relates history that she was seen in the emergency department around 2 weeks ago and took 5 days of Levaquin. Her symptoms had improved since then and she was getting over pneumonia. However, she states 3 days ago everyone her family got sick. She developed a rash all over her body, on the tops of her feet, on her hands became swollen. It is very pruritic in nature. She states she feels a little short of breath but denies any throat closing. She has no pain on inspiration. Her main concern is that she had this rash that feel like hives that will swell up, then go away and her entire body is itchy. She has taken Benadryl, but it makes her loopy and sleepy, and not allowing her to go to work. She is not actually short of breath. She has had no nausea vomiting or diaphoresis. 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 She states it is not heavy but her states she does a lot of heavy lifting. It is painful to do these motions. But she does not remember specifically hurting herself. She states she had something like this in her 20s and was diag nosed as pleurisy. But there is no known cause for that pleurisy. She denies ever being diagnosed with a DVT or PE. There is been no travel surgery immobilization family history of DVT or PE. Patient is a smoker and was counseled to quit. She has had a sister that of COPD. She had another family member of COPD and lung cancer. Patient also thinks her father may have had his first heart attack in his late 40s. Patient is hypertensive. She was diagnosed 3 months ago. This was at a routine physical. She was started on an unknown medicine that caused her to have abnormal menstrual cycle so she stopped the medicine. She has not yet followed up. I was asked to see her due to worsening anemia. She has never been on iron. She is never received a blood transfusion. She has not found of GI blood loss anemia. She does not take any. No previous history of H. pylori. She has never had endoscopy before. [facility] Medical History HTN (hypertension) Home Medications ferrous sulfate 325 mg (65 mg iron) tablet (Feosol) 325 mg PO BID #60 tabs 05/12/23 [Rx Last Taken Unknown] naproxen 500 mg tablet 500 mg PO BID #14 tabs 05/12/23 [Rx Last Taken Unknown] albuterol sulfate 90 mcg/actuation aerosol inhaler (Ventolin HFA) 1 - 2 puff inhalation Q4H PRN PRN Wheezing #1 ea 05/27/23 [Rx Last Taken Unknown] doxycycline hyclate 100 mg tablet 100 mg PO BID #14 tabs 05/27/23 [Rx Last Taken Unknown] Allergy/AdvReac Type Severity Reaction Status Date / Time No Known Allergies Allergy Verified 05/27/23 14:11 Surgical History History of tonsillectomy Social History Smoking Status: Current every day smoker tobacco type: cigarettes ROS Constitutional Constitutional: Reports fatigue, malaise and weakness; Denies anorexia, change in weight, chills, fever(s) or night sweats Eyes Eyes: Denies blurry vision, change in vision, discharge from eye(s) or eye pain Cardiovascular Cardiovascular: Denies chest pain, claudication, edema or palpitations Respiratory/Chest Respiratory/Chest: Reports cough and shortness of breath with exertion; Denies hemoptysis, productive cough or shortness of breath at rest Gastrointestinal Gastrointestinal: Denies abdominal pain, coffee ground emesis, constipation, diarrhea, dyspepsia, hematemesis, hematochezia, melena, nausea or vomiting Genitourinary Genitourinary: Denies dysuria, hematuria, urinary frequency, urinary hesitancy, urinary incontinence or urinary urgency Musculoskeletal Musculoskeletal: Denies back pain, joint pain, joint stiffness, joint swelling, myalgias or neck pain Neurologic Neurologic: Denies abnormal gait, abnormal speech, dizziness, focal weakness, headache(s), loss of vision, numbness, other visual disturbances, paresthesias, syncope or tingling Psychiatric Psychiatric: Denies anxiety, cognitive impairment, depression, irritability, mood swings or suicidal ideation Endocrine Endocrinology: Denies change in body appearance, cold intolerance, excessive sweating, heat intolerance, polydipsia or polyuria Hematologic/Lymphatic Hematologic/Lymphatic: Denies none, anemia, easy bleeding, easy bruising or lymphadenopathy Allergic/Immunologic Allergic/Immunologic: Denies rhinitis, urticaria, eczemia or asthma Physical Exam Const alert, oriented x3 and no apparent distress Constitutional Narrative: Patient is morbidly obese General Appearance: cooperative, well kempt and well developed Orientation / Consciousness: awake, oriented to person, oriented to place and oriented to time HEENT normocephalic and moist oral mucous membranes Eyes PERRL, EOMs intact bilaterally and conjunctivae normal Neck supple, no JVD, thyroid normal and no carotid bruits General: trachea midline Resp normal respiratory effort, no retractions, no use of accessory muscles and clear to auscultation bilaterally Auscultation: Negative for rales, rhonchi or wheezes Cardio regular rate, regular rhythm, S1 normal heart sound, S2 normal heart sound, no murmurs, no rub and no gallops GI normal to inspection, nondistended, normoactive bowel sounds, soft to palpation, non-tender and non-distended Extremity no clubbing, cyanosis or edema Skin Skin Narrative: Patient has scattered raised reddened areas over the left side of her face and her left forearms General Skin Exam: no breakdown Neuro oriented x3, CN's II-XII intact bilaterally, moves all extremities, no focal motor deficits and no sensory deficits noted Sensorium / Orientation: awake, alert, oriented to person, oriented to place and oriented to time Speech: speech normal Psych affect normal Lab / Micro Data 05/27/23 08:24 05/27/23 08:24 Labs: Laboratory Results - last 24 hr 05/27/23 08:24: WBC 13.3 H, RBC 3.71 L, Hgb 7.2 L, Hct 25.2 L, MCV 67.9 L, MCH 19.4 L, MCHC 28.6 L, RDW Std Deviation 47.9 H, RDW Coeff of Moe 20.1 H, Plt Count 685 H, MPV 8.9, Immature Gran % (Auto) 0.900, Neut % (Auto) 83.0 H, Lymph % (Auto) 7.4 L, [place] % (Auto) 8.5, Eos % (Auto) 0.0, Baso % (Auto) 0.2, Absolute Neuts (auto) 11.0 H, Absolute Lymphs (auto) 0.99, Nucleated RBC % 0, Hypochromasia 2+, Anisocytosis 1+, Microcytosis 2+, Retic Count 2.34 H, Immature Retic Fraction 31.80 H, Retic Hgb Equivalent 18.0 L, Sodium 134 L, Potassium 4.1, Chloride 104, Carbon Dioxide 24.0, Anion Gap 6, BUN 15, Creatinine 0.68, Estim Creat Clear Calc 76.35, Est GFR (MDRD) Af Amer 119, Est GFR (MDRD) Non-Af 98, BUN/Creatinine Ratio 22.1 H, Glucose 116 H, Calcium 9.0, Iron 11 L, TIBC 344, Iron Saturation 3.2 L, Ferritin 51, Total Bilirubin 0.40, AST 28, ALT 40, Alkaline Phosphatase 232 H, Total Protein 7.2, Albumin 2.5 L, Globulin 4.7 H, Albumin/Globulin Ratio 0.5 L Micro: Microbiology 05/27/23 12:03 Mucosa - Nasopharyngeal Respiratory Panel (PCR) - Final 05/27/23 12:03 Nasal Secretion SARS-CoV-2 Antigen (Rapid) - Final 05/27/23 10:25 Stool Stool Occult Blood ([facility]) - Final Occult Blood Positive Radiology Impression Chest X-Ray 05/27/23 08:35 IMPRESSION: Residual pleural parenchymal changes at the left lung base although this has improved. New infiltrate in the medial aspect of the right lung base. Further aggressive follow-up is recommended. Electronically Signed: Guanako Malone MD at 8:53 EDT , Assessment & Plan Assessment/Plan (1) GI bleeding: PLAN: Plan 47-year-old with a severe microcytic iron deficiency anemia. The differential diagnosis does include celiac disease, peptic ulcer disease, H. pylori associated gastritis, gastric antral vascular ectasia, NSAID induced ulcerations. , Hiatal hernia with Shawn's erosions, angiodysplasia, telangiectasia, iron malabsorptive disorder and GI bleed. She should undergo an upper endoscopy to evaluate upper GI tract. If negative she may need a colonoscopy. And possibly capsule endoscopy. She was explained alternatives, risk, benefits include not withstanding bleeding, infection, sepsis, perforation, need for emergency to . Show an ASA of 3.
--- NOTE | 2023-05-27 18:32 | OP.EGD_ITS ---
Patient Name: Autumn Case Procedure Date: 05/27/2023 6:15 PM Date of : 1975 Age: 47 Procedure: Upper GI endoscopy Indications: Iron deficiency anemia Providers: Jose Luis Del Rosario DO Medicines: Monitored Anesthesia Care Patient Profile: This is a 47 year old female. Refer to note in patient chart for documentation of history and physical. Patient has symptoms of chronic epigastric abdominal pain. Complications: No immediate complications. Procedure: Pre-Anesthesia Assessment: - Prior to the procedure, a History and Physical was performed, and patient medications and allergies were reviewed. The patient is competent. The risks and benefits of the procedure and the sedation options and risks were discussed with the patient. All questions were answered and informed consent was obtained. Patient identification and proposed procedure were verified by the physician in the pre-procedure area. Mental Status Examination: alert and oriented. Airway Examination: normal oropharyngeal airway and neck mobility. Respiratory Examination: clear to auscultation. CV Examination: normal. Prophylactic Antibiotics: The patient does not require prophylactic antibiotics. Prior Anticoagulants: The patient has taken no anticoagulant or antiplatelet agents. ASA Grade Assessment: II - A patient with mild systemic disease. After reviewing the risks and benefits, the patient was deemed in satisfactory condition to undergo the procedure. The anesthesia plan was to use monitored anesthesia care (MAC). Immediately prior to administration of medications, the patient was re-assessed for adequacy to receive sedatives. The heart rate, respiratory rate, oxygen saturations, blood pressure, adequacy of pulmonary ventilation, and response to care were monitored throughout the procedure. The physical status of the patient was re-assessed after the procedure. After obtaining informed consent, the endoscope was passed under direct vision. Throughout the procedure, the patient's blood pressure, pulse, and oxygen saturations were monitored continuously. The gastroscope was introduced through the mouth, and advanced to the second part of duodenum. The upper GI endoscopy was accomplished without difficulty. The patient tolerated the procedure well. Scope In: 6:18:56 PM Scope Out: 6:24:00 PM Total Procedure Duration Time 0 hours 5 minutes 4 seconds Findings: LA Grade C (one or more mucosal breaks continuous between tops of 2 or more mucosal folds, less than 75% circumference) esophagitis with no bleeding was found 36 to 39 cm from the incisors. A small hiatal hernia was present. Few non-bleeding superficial gastric ulcers with no stigmata of bleeding were found in the gastric antrum. The largest lesion was 2 mm in largest dimension. Patchy moderate inflammation characterized by erosions, erythema, friability and granularity was found in the duodenal bulb and in the first portion of the duodenum. Three non-bleeding linear duodenal ulcers with no stigmata of bleeding were found in the duodenal bulb. The largest lesion was 5 mm in largest dimension. Biopsies were taken with a cold forceps for histology. Verification of patient identification for the specimen was done. Estimated blood loss was minimal. Biopsies were taken with a cold forceps for Helicobacter pylori testing. Verification of patient identification for the specimen was done. Estimated blood loss was minimal. Impression: - LA Grade C erosive esophagitis with no bleeding. - Small hiatal hernia. - Non-bleeding gastric ulcers with no stigmata of bleeding. - Duodenitis. - Non-bleeding duodenal ulcers with no stigmata of bleeding. Biopsied. Recommendation: - Return patient to [facility] care. - Full liquid diet. - Use Protonix (pantoprazole) 40 mg PO BID for 8 weeks. - Use sucralfate tablets 1 gram PO BID for 8 weeks. - Continue present medications. - No aspirin, ibuprofen, naproxen, or other non-steroidal anti-inflammatory drugs for 12 weeks. Procedure Code(s): --- Professional --- 16481, Esophagogastroduodenoscopy, flexible, transoral; with biopsy, single or multiple CPT copyright 2021 [employer]. All rights reserved. The codes documented in this report are preliminary and upon interpreter review may be revised to meet current compliance requirements. Jose Luis Del Rosario DO 05/27/2023 6:31:57 PM This report has been signed electronically. Number of Addenda: 0 Note Initiated On: 05/27/2023 6:15 PM
--- NOTE | 2023-05-27 18:32 | OP.CCLET_ITS ---
05/27/2023 No Primary Care Physician Re : Upper GI endoscopy procedure for Autumn Bassett Dear Care Physician This procedure was performed on Saturday, May 27, 2023. My impressions and recommendations are as follows: Impressions : - LA Grade C erosive esophagitis with no bleeding. - Small hiatal hernia. - Non-bleeding gastric ulcers with no stigmata of bleeding. - Duodenitis. - Non-bleeding duodenal ulcers with no stigmata of bleeding. Biopsied. Recommendations : - Return patient to [facility] for ongoing care. - Full liquid diet. - Use Protonix (pantoprazole) 40 mg PO BID for 8 weeks. - Use sucralfate tablets 1 gram PO BID for 8 weeks. - Continue present medications. - No aspirin, ibuprofen, naproxen, or other non-steroidal anti-inflammatory drugs for 12 weeks. My findings are described in the full procedure note, which is enclosed. If I can be of further assistance, please feel free to contact me at . Sincerely, Jose Luis Del Rosario, 05/27/2023 6:31:57 PM This report has been signed electronically.
[2023-05-27 18:45] LABS: BNP,B-Type NATRIURETIC PEPTIDE 73.6 pg/mL (0-100)
[2023-05-27] MEDS: Azithromycin 500 MG in Dextrose 5%-Water (250mL Bag) 250 ML 250 MG IV (19:47)
[2023-05-27 20:28] LABS: Erythrocyte Sedimentation Rate 79 mm/hr (0-30)
[2023-05-27 20:45] LABS: Ferritin 52 ng/mL (8-252); Iron 11 ug/dL (50-170); Iron Binding Capacity,Total 331 ug/dL (250-450); LDH 184 U/L (84-246); PERCENT IRON SATURATION 3.3 % (15.0-55.0)
[2023-05-27] MEDS: Ondansetron 4 MG/2 ML Vial IV (20:47)
[2023-05-27] MEDS: 0.9% Saline Lock 10 ML Syringe IV ×3 (20:47→22:14)
[2023-05-27] MEDS: Ceftriaxone 1 GM/50 ML BAG IV (21:37)
[2023-05-27] MEDS: Sucralfate 1 GM Tablet PO (22:19)
[2023-05-27] MEDS: Sodium Ferric Gluconat/Sucrose 250 MG in 0.9% Normal Saline (250mL Bag) 250 ML 135 MG IV (22:50)
[2023-05-28 00:27] VITALS: BP 135/85; PULSE 94; RESP 18; TEMP 36.9; O2SAT 97
[2023-05-28 02:00] VITALS: BP 144/66; PULSE 94; RESP 18; TEMP 37; O2SAT 94
[2023-05-28] MEDS: Sucralfate 1 GM Tablet PO (06:03)
[2023-05-28] MEDS: 0.9% Normal Saline (1000mL) 1,000 ML 60 ML IV ×2 (06:03→08:39)
[2023-05-28] MEDS: 0.9% Saline Lock 10 ML Syringe IV ×2 (06:04→09:59)
[2023-05-28] MEDS: Acetaminophen 325 MG Tablet 650 MG PO ×2 (06:54→11:33)
[2023-05-28 07:12] VITALS: O2SAT 96
[2023-05-28 07:57] LABS: Absolute Neutrophil Count 10.9 X10^3/uL (2.0-7.7); Basophil# 0.03 X10^3/uL; Basophil% 0.2 % (0-1); Eosinophil# 0.02 X10^3/uL; Eosinophils% 0.2 % (0-5); Hematocrit 25.9 % (37-47); Hemoglobin 7.2 g/dL (12.0-15.0); Lymphocyte % 6.8 % (19-41); Mean Corp Hgb Conc 27.8 g/dL (32-36); Mean Corpuscular Hgb 19.8 pg (27.0-32.0); Mean Corpuscular Volume 71.2 fL (81-99); Mean Platelet Vol. 9.3 fl (6.2-12.0); Monocyte# 1.31 X10^3/uL; Monocyte% 9.9 % (0-10); NRBC Flagged by Analyzer 0.4 % (0-5); Neutrophil # 10.89 X10^3/uL (2.7-7.7); Neutrophil % 82.1 % (47-70); POSITIVE MORPHOLOGY YES; Platelet Count 687 K/mm3 (150-450); RBC Distribution Width CV 21.4 % (11.6-14.6); RBC Distribution Width SD 53.1 fl (35.1-43.9); Red Blood Count 3.64 M/mm3 (4.2-5.4); White Blood Count 13.3 K/mm3 (4.4-11.0)
[2023-05-28 08:00] VITALS: RESP 18
[2023-05-28 08:04] LABS: Differential Indicated SCAN CRITERIA MET
[2023-05-28 08:34] LABS: Anisocytosis 2+; Differential Comment SCANNED
[2023-05-28 08:35] LABS: Microcytosis 1+; Ovalocyte RARE; Polychromasia RARE
[2023-05-28] MEDS: Pantoprazole Sodium 40 MG in 0.9% Normal Saline (100mL MB+) 100 ML 330 MG IV (08:38)
--- NOTE | 2023-05-28 09:10 | NURSING ---
echo being performed at bedside
[2023-05-28 09:23] VITALS: BP 137/73; PULSE 91; RESP 18; TEMP 37; O2SAT 93
[2023-05-28] MEDS: Ceftriaxone 1 GM/50 ML BAG IV (09:30)
[2023-05-28] MEDS: Azithromycin 500 MG in Dextrose 5%-Water (250mL Bag) 250 ML 250 MG IV (09:59)
--- NOTE | 2023-05-28 10:45 | PCA ---
Patient Demographic sheet faxed to [facility], fax number- [phone]
--- NOTE | 2023-05-28 10:55 | CASEMGMT ---
DANIELE CM NOTE: Insurance review for hospitals In-network with?[place] [employer] PPO Insurance if transfer is recommended is as follows: [facility], [place], [facility], [facility], [facility], [facility], [facility]), and . Pao RAZAN RN CM
--- NOTE | 2023-05-28 11:03 | PCM.HOSP.N ---
Hospitalist Note I talked to cardiology today, patient had an echocardiogram performed which showed a moderate to large pericardial effusion, cardiology recommended that the patient be transferred out to a facility that could perform pericardiocentesis if that became necessary. There is no sign of cardiac tamponade at this time. Patient is not having any chest pain this morning, she is on 2 L of supplemental oxygen but looks comfortable. I relayed the need for her to be transferred to another facility and she agreed, I have called [facility] in [place] and they have agreed to except the patient. Patient's hemoglobin today is stable at 7.2, patient's white blood cell count remains elevated at 13.3.
[2023-05-28 11:25] VITALS: BP 130/71; PULSE 90; RESP 20; TEMP 5446.6; TEMP 9836; O2SAT 93
--- NOTE | 2023-05-28 11:57 | NURSING ---
Bed assignment received from [facility], [address]- Bed 1 phone number for report,
--- NOTE | 2023-05-28 12:43 | NURSING ---
Transportation called, at 12:40 squad ETA 60-90 Mins
--- NOTE | 2023-05-29 13:37 | PCM.DC.SUM ---
Providers Date of Admission: 05/27/23 Date of Discharge: 05/28/23 Primary Care Physician: Milka Primary Care Phys Consultations 05/27/23 13:55 Consult: Gastroenterology Routine Consulting Provider: Anika Gastroenterivette Reason for Consult: anemia, need for EGD/colonoscopy EMERGENT Consult: No MD Notified: Yes Date Notified: 05/27/23 Time Notified: 12:09 Method of Notification: Verbal Reason For Visit: SYMPTOMATIC ANEMIA, PNEUMONIA Diagnosis Discharge Diagnosis (1) GI bleeding: Status: Acute Code(s): K92.2 - Gastrointestinal hemorrhage, unspecified Plan 1. Acute on chronic iron deficiency anemia secondary to esophagitis, gastric and duodenal ulcers, and duodenitis with GI blood loss-acute #2 Left pleural effusion #3 essential hypertension- #4 morbid obesity-complicates care, medical course, recovery, and prognosis. #5 large pericardial effusion-etiology unclear #6 urticaria with hives-etiology unknown Community-acquired pneumonia was ruled out Total clinical time spent by myself addressing the patient's medical issues, reviewing all of her data, and collaborating with patient's care team: 32 minutes Medications at Discharge Home Medications ferrous sulfate 325 mg (65 mg iron) tablet (Feosol) 325 mg PO BID #60 tabs 05/12/23 naproxen 500 mg tablet 500 mg PO BID #14 tabs 05/12/23 albuterol sulfate 90 mcg/actuation aerosol inhaler (Ventolin HFA) 1 - 2 puff inhalation Q4H PRN PRN Wheezing #1 ea 05/27/23 doxycycline hyclate 100 mg tablet 100 mg PO BID #14 tabs 05/27/23 Hospital Course Operations None Procedures 2-D Echocardiogram and EGD Summary of Care Provided Minutes Spent on Discharge: 32 Hospital Course: This 47-year-old white female was seen in the emergency room at [facility] with complaint of shortness of breath and dry cough. She was seen in the emergency room at [facility] of approximately 2 weeks prior and treated for a suspected pneumonia with antibiotics which she finished a 5-day course. Patient also complained of intermittent hives and itching on her body particularly on her arms and legs. When the patient was seen in the emergency room 2 weeks prior she was placed on oral iron due to anemia. Work-up in the emergency room included a CBC which was remarkable for an elevated white blood cell count of 13.3, hemoglobin was 7.2, chest x-ray showed residual pleural-parenchymal changes at the left lung base with a new infiltrate in the medial aspect of the right lung base. Patient's pulse ox was not while in the emergency room but when she walked she became short of breath and tachycardic. Patient was admitted to [place] [address] for what was felt to be pneumonia and acute on chronic anemia, I checked with the patient's PCPs office and the patient had a hemoglobin of 10.7 in August 2022. Patient was supposed to have a Cologuard test but the patient never picked up the material. It also appears that the patient was placed on amlodipine-patient states that when she took her blood pressure medication it caused a continuous menstrual period over 30 days and she had to stop the medication. Patient underwent an EGD which showed the presence of gastric and duodenal ulcers, there is no active bleeding seen however, there was also noted to be esophagitis and duodenitis. Patient was maintained on Protonix and Carafate, this examiner felt that her chest x-ray on admission was indicative of possible enlarged heart and an echocardiogram was performed-this echocardiogram showed a large pericardial effusion. Cardiology recommended that the patient be transferred out to a tertiary facility in case she had to undergo a pericardiocentesis. As a further note, patient received IV iron infusions due to iron studies indicating that she had iron deficiency anemia. I called [facility] in [place] and they agreed to accept the patient. On 05/28/2023, patient was seen and examined: On examination she appeared in good health and spirits, she does not appear to be in any distress. Vital signs as documented. Skin warm and dry and without overt rashes. Neck without JVD, thyroid appears normal, trachea is midline, neck is supple. Lungs clear, normal air movement was noted. Heart exam notable for regular rhythm, normal sounds and absence of murmurs, rubs or gallops. Abdomen unremarkable and without evidence of organomegaly, masses, or abdominal aortic enlargement, bowel sounds are present in all 4 quadrants, no abdominal tenderness was noted. Extremities nonedematous, no cyanosis was noted, no clubbing was noted. Neuro: Cranial nerves II through XII are grossly intact, no focal motor deficits were noted, sensation to light touch and pinprick is intact, motor exam 5/5 throughout. Psych: Patient is alert and oriented x3, she does not appear anxious or depressed, she does not appear agitated. Patient was transferred to [facility] in [place] for further care in stable condition on 05/28/2020 Weight / BMI Weight Weight: 98.9 kg Body Mass Index (BMI) 41.1 ABG / Lab / Microbiology Data 05/28/23 06:50 05/27/23 08:24 Microbiology: Microbiology 05/27/23 12:03 Mucosa - Nasopharyngeal Respiratory Panel (PCR) - Final 05/27/23 12:03 Nasal Secretion SARS-CoV-2 Antigen (Rapid) - Final 05/27/23 10:25 Stool Stool Occult Blood ([facility]) - Final Occult Blood Positive Meaningful Use Info Meaningful Use Diagnoses (Choose all that apply): None applicable Discharge Plan Admission Admit Date/Time: 05/27/23 12:03 Attending Provider: Wilver Pak Primary Care Provider: Carisa Physician,Milka Primary Instructions Additional Instructions / Restrictions: Follow-up with your primary care provider in the next week. Return with increased shortness of breath, new or worsening symptoms. Discharge Orders/Prescriptions Prescriptions: New doxycycline hyclate 100 mg tablet 100 mg PO BID Qty: 14 0RF albuterol sulfate [Ventolin HFA] 90 mcg/actuation HFA aerosol inhaler 1 - 2 puff inhalation Q4H PRN PRN (Reason: Wheezing) Qty: 1 0RF No Action ferrous sulfate [Feosol] 325 mg (65 mg iron) tablet 325 mg PO BID Qty: 60 0RF Rx Instructions: Heart once a day for a week then go up to twice a day naproxen 500 mg tablet 500 mg PO BID Qty: 14 0RF Referrals / Follow Up: Care Physician,No Primary [Primary Care Provider] - Disposition Disposition (needs filled in before D/C Order can be placed): Acute Care Hospital Charges/Coding Visit Charges Inpatient E&M: 69906 Disch Hosp >30min
[2023-06-01 20:07] LABS: Albumin 2.6 g/dL (2.9-4.4); Alpha-1-Globulins 0.5 g/dL (0.0-0.4); Deamidated Gliadin IgA 18 units (0-19); Deamidated Gliadin IgG 16 units (0-19); Endomysial Antibody IgA Negative (Negative); Gamma Globulin 1.1 g/dL (0.4-1.8); Immunoglobulin A 336 mg/dL (87-352); Immunoglobulin E 92 IU/mL (6-495); Immunoglobulin G 1085 mg/dL (586-1602); Immunoglobulin M 69 mg/dL (26-217); PROEL- TOTAL PROTEIN 6.2 g/dL (6.0-8.5); t-Transglutaminase IgA <2 U/mL (0-3)
== END 2023-05-28 14:45 | disposition short-term general hospital (02) | DRG 811 ==
LOC: ED 10:08 → MS3 13:10
PROVIDERS: Internal Medicine Gastroenterology; Admitting Provider Internal Medicine; Emergency Provider Emergency Medicine; Visit Provider Internal Medicine
PROC: 0DJ08ZZ Inspection of Upper Intestinal Tract, Via Natural or Artificial Opening Endoscopic (ICD-10-PCS; CPT 43235; principal; 2023-05-27 16:55)
DX: D62 Acute posthemorrhagic anemia (principal); Z68.41 Body mass index [BMI] 40.0-44.9, adult; E66.01 Morbid (severe) obesity due to excess calories; J18.9 Pneumonia, unspecified organism; K22.11 Ulcer of esophagus with bleeding; K26.4 Chronic or unspecified duodenal ulcer with hemorrhage; K29.81 Duodenitis with bleeding; K25.4 Chronic or unspecified gastric ulcer with hemorrhage; I31.39 Other pericardial effusion (noninflammatory); J90 Pleural effusion, not elsewhere classified; I10 Essential (primary) hypertension; L50.9 Urticaria, unspecified; K44.9 Diaphragmatic hernia without obstruction or gangrene; F17.210 Nicotine dependence, cigarettes, uncomplicated; Z79.899 Other long term (current) drug therapy; K44.0 Diaphragmatic hernia with obstruction, without gangrene; R21 Rash and other nonspecific skin eruption
CPT/HCPCS: 43239; 36415; 36430; 71045; 80053; 82274; 82728; 82784; 82785; 83516; 83540; 83550; 83615; 83880; 84165; 85025; 85045; 85652; 86140; 86255; 86334; 86850; 86900; 86901; 86920; 86922; 87633; 87811; 88305; 93005; 93306; 96365; 96366; 96367; 96368; 96372; 96375; 97802; 99221; 99284; P9016; A4216; G0378; J2405; J2916